=== PATIENT | female | born 1970 | race African-American/Black ===

== ENCOUNTER 2016-06-14 23:41 | Emergency (ER) ==
[2016-06-15] MEDS ORDERED: SUDAFED 12-HOUR PO ONE (00:24)
[2016-06-15] MEDS ORDERED: NAPROSYN PO ONE (00:24)
[2016-06-15] MEDS ORDERED: ROBITUSSIN-DM PO ONE (00:24)
--- NOTE | 2016-06-15 00:30 | PROVIDER DOCUMENTATION ---
HPI-General Adult - General Source: patient - History of Present Illness -Gen Adult Nature of Presenting Problems: PT IS A 46YOF PRESENTING TO THE ED C/O FLU-LIKE SYMPTOMS. PT STATE SHE BEGAN 2 DAYS AGO WITH A SCRATCHY THROAT AND THEN BEGAN HAVING A DRY COUGH, SINUS CONGESTION, SOB, AND ALL OVER BODY ACHES WITH A SUBJECTIVE FEVER. Location of Pain/Injury: reports: head, generalized Pain Radiation: reports: no radiation Quality of Pain: reports: aching, fullness Severity: reports: moderate Onset/Duration: reports: 2 days ago Timing: reports: still present Context/Activities at Onset: reports: light activity Modifying Factors: improves with: nothing Associated Symptoms: reports: cough, EENT symptoms, fatigue, fever/chills, malaise, muscle aches, sinus congestion/drainage, shortness of breath, weakness . denies: nausea Similar Symptoms Previously?: No Recently seen or treated by another doctor?: No <Lorri Lerner - Last Filed: 06/15/16 00:26> <Guevara Molina - Last Filed: 06/15/16 01:01> - General Chief Complaint: Flu Symptoms Stated Complaint: FLU SX Time Seen by Provider: 06/15/16 00:14 Allergies/Adverse Reactions: Patient Allergies Allergy/AdvReac Type Severity Reaction Status Date / Time No Known Allergies Allergy Verified 03/07/16 18:50 Home Medications: Home Medication List Medication Instructions Recorded Confirmed Last Taken Type Oseltamivir [Tamiflu] 75 mg PO BID #10 capsule 06/15/16 Unknown Rx Review of Systems - Adult - REVIEW OF SYSTEMS - ADULT Constitutional: reports: see HPI, chills, fever, fatique Eyes: reports: no symptoms reported Ears, Nose, Mouth & Throat: reports: see HPI, ear pain, sinus problem, hoarseness, throat pain Cardiovascular: reports: no symptoms reported Respiratory: reports: see HPI, cough, shortness of breath. denies: excessive sputum production Gastrointestinal: reports: no symptoms reported Genitourinary: reports: no symptoms reported Musculoskeletal: reports: no symptoms reported Integumentary: reports: no symptoms reported Neurological: reports: no symptoms reported Psychiatric: reports: no symptoms reported Endocrine: reports: no symptoms reported Hematologic/Lymphatic: reports: no symptoms reported Allergic/Immunologic: reports: no symptoms reported All Other Systems: Reviewed and Negative <Lorri Lerner - Last Filed: 06/15/16 00:26> Past History - Adult - PAST MEDICAL HISTORY-ADULT Review of Records: reports: Old Records Reviewed, Nursing Assessment Review, Medications Reviewed, Social history reviewed & non-contributory. Major Childhood Illnesses: reports: denies history Cardiovascular: reports: denies history Respiratory: reports: denies history Gastrointestinal: reports: denies history Obstetrical/Gynecological: reports: denies history Genitourinary: reports: denies history Musculoskeletal: reports: denies history Neurological: reports: denies history Endocrine/Immune: reports: denies history Other Conditions: reports: denies history - IMMUNIZATION STATUS Childhood Immunizations: See Nurse Assessment Flu Vaccine: See Nurse Assessment - FAMILY HISTORY Family History: reviewed, not pertinent - SOCIAL HISTORY Smoking: denies, non-smoker Substance Use: none/never, denies Alcohol Use Frequency: never Living Situation: family <Lorri Lerner - Last Filed: 06/15/16 00:26> Physical Exam-General - PHYSICAL EXAM-ADULT Initial Vital Signs Reviewed: Yes - CONSTITUTIONAL General Appearance: alert, moderate distress. negative: appears well - EYES Eyes: PERRL/EOMI, pink conjunctivae, fundi clear, no AV nicking - HEAD, EARS, NOSE, MOUTH & THROAT HENMT: normocephalic/atraumatic, moist mucous membranes, pharyngeal erythema, TM obscurred by cerumen, frontal tenderness, maxillary tenderness. negative: normal ENT inspection, TMs normal, pharynx normal, tonsillar exudate - NECK Neck: non-tender, full range of motion, supple, normal inspection - RESPIRATORY Respiratory: chest non-tender, lungs clear, normal breath sounds, no pleuratic chest pain, no respiratory distress, no accessory muscle use - CARDIOVASCULAR Cardiovascular: normal peripheral pulses, regular rate, rhythm, no edema, no gallop, no JVD, no murmur - GASTROINTESTINAL (ABDOMEN) Abdominal Exam: normal bowel sounds, non tender, soft, no organomegaly, no pulsatile mass - LYMPHATIC Lymphatic: no adenopathy - MUSCULOSKELETAL Back Exam: normal inspection, no CVA tenderness, no vertebral tenderness Extremity: normal range of motion, non-tender, normal gait, normal inspection, no pedal edema, no calf tenderness, normal capillary refill, pelvis stable - SKIN Integumentary: normal turgor, warm/dry, pallor. 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 [Sudafed 12-Hour] Med 06/15/16 00:24 Discontinued 120 mg PO NOW ONE Vital Signs - 24 hr 06/14/16 23:47 Temperature 97.5 F L Pulse Rate 103 H Respiratory 20 Rate Blood Pressure 147/92 O2 Sat by Pulse 97 Oximetry <Lorri Lerner - Last Filed: 06/15/16 00:26> Departure <Lorri Lerner - Last Filed: 06/15/16 00:26> - Departure Time of Disposition Order: 01:00 Certified Medical Emergency: Emergent <Guevara Molina - Last Filed: 06/15/16 01:01> - Departure DIAGNOSIS: Influenza A Disposition: HOME 01 Condition: Fair Additional Instructions: DELSYM FOR COUGH 2 ALEVE FOR FEVER/ PAIN SUDAFED 12 HOUR and/or NASACORT SPRAY TWICE A DAY FOR CONGESTION Prescriptions: Oseltamivir [Tamiflu] 75 mg PO BID #10 capsule Referrals: Mansoor Etienne MD [Primary Care Provider] - Forms: Return to School/Parent Work Attestation - Scribe Verification/Attestation Scribe:: Lorri Lerner Acting as Scribe for:: Guevara Molina Scribe documention review:: This chart was documented by a scribe and accurately reflects the service the provider performed and the decisions made by the provider. <Lorri Lerner - Last Filed: 06/15/16 00:26> Physician Attestation - Physician Attestation I, the provider, attest to the following statement:: Guevara M. Kleeman Physician documentation Attestation:: This documentation recorded by the scribe accurately reflects the service I personally performed and the decisions made by me. <Lorri Lerner - Last Filed: 06/15/16 00:26>
[2016-06-15] MEDS ORDERED: NAPROSYN ONE (00:31)
[2016-06-15] MEDS ORDERED: ROBITUSSIN-DM ONE (00:31)
[2016-06-15] MEDS ORDERED: TAMIFLU PO ONE (00:34)
[2016-06-15] MEDS ORDERED: TAMIFLU ONE (00:36)
[2016-06-15 00:51] VITALS: BP 138/093
[2016-06-15] MEDS ORDERED: XOPENEX NEB ONE (00:52)
[2016-06-15] MEDS ORDERED: PULMICORT ONE (00:52)
[2016-06-15] MEDS ORDERED: PULMICORT INH ONE (01:01)
[2016-06-15] MEDS ORDERED: XOPENEX NEB INH ONE (01:01)
== END 2016-06-15 01:10 | disposition home or self-care (01) ==
LOC: P.ED 23:41
DX: J11.1 Influenza due to unidentified influenza virus with other respiratory manifestations (principal); R05 Cough; R09.81 Nasal congestion; R50.9 Fever, unspecified; R53.83 Other fatigue; R06.02 Shortness of breath; R49.0 Dysphonia
CPT/HCPCS: 87804; 94640; 94761; 99283